=== PATIENT | female | born 1960 | race Caucasian/White ===

== ENCOUNTER 2018-02-01 09:04 | Day surgery (SDC) | payer BC ==
[~2018-02-01] VITALS: Ht 165.1 cm; Wt 100.7 kg
--- NOTE | ~2018-02-01 | OP ---
PATIENT NAME: JORGE TEJEDA MEDICAL RECORD: [id number] :60 LOCATION:[facility] ADMISSION DATE: SURGEON: JOB GUZMAN MD DATE OF OPERATION: 02/01/2018 PREOPERATIVE DIAGNOSES: 1. Vaginal mass. 2. Abnormal pelvic ultrasound. POSTOPERATIVE DIAGNOSES: 1. Vaginal mass. 2. Abnormal pelvic ultrasound. 3. Uterine synechiae. PROCEDURES PERFORMED: 1. Removal of vaginal mass. 2. Hysteroscopy. 3. Dilation and curettage. SURGEON: Job Guzman MD PATIENT SERVICES ASSISTANT: Anatoly Jerome ANESTHETIC: General. FINDINGS: Uterine vault is within normal limits with exception of a 2-cm verrucal lesion arising from the posterior vaginal wall, right at the midline. At the time of hysteroscopy, atrophy was noted inside of the uterine lining and banding/synechiae at the right fundus. SPECIMENS REMOVED: 1. Vaginal mass. 2. Endometrial curetting. SPECIMENS DISPOSITION: #1 and #2 to pathology. ESTIMATED BLOOD LOSS: Minimal. FLUIDS: One liter of lactated Ringer's. URINE OUTPUT: Quantity sufficient void prior to this procedure. COMPLICATION: None. DRAIN: None. INDICATION: The patient is a 58-year-old female with history of a vaginal mass and abnormal finding on pelvic ultrasound of the uterine cavity. The patient was consented for removal of the mass as well as D&C and hysteroscopy. DESCRIPTION OF PROCEDURE: After informed consent was assured, the patient was taken to the operating room, where anesthetic was obtained without difficulty. The patient was now placed in Kem stirrups and prepped and draped. A [place] retractor was inserted into the vaginal vault and weighted speculum was placed with visualization of the verrucal mass arising from the posterior vaginal OPERATIVE REPORT [id number] JORGE TEJEDA [place]. This was grasped with an Allis clamp, elevated; and using a #15 blade, elliptical incision was made at the base of this mass. The mass was now removed and passed for specimen. The defect created by removal was closed with 2-0 Vicryl in a running fashion on a CT-2 needle. After this had been performed, inspection revealed a small area of bleeding and this area was cauterized. The cervix was now dilated to accommodate the hysteroscope. This was passed gently to the fundus with visualization of both cornual regions. The right cornual region was noted to have banding. No masses were identified. Curettage returned scant tissue. Single-tooth tenaculum that was used to study the cervix during this portion of the procedure was removed and adequate hemostasis was noted. The speculum was removed. The patient was taken down from [facility] and went to the recovery area in stable condition. TRANSINT:[id number] Voice Confirmation ID: [id number] DOCUMENT ID: [id number] JOB GUZMAN MD at 1431 CC: [id number] DICTATION DATE: 02/01/18 1320 [employer] MAKER: 02/01/[address] [facility] [place] 02/01/18 [facility] [address] [place] [address]
[~2018-02-01 09:04] MED LIST: CELEXA40 MG PO; LEVOXYL50 MCG PO; LIPITOR20 MG PO; ZESTORETIC 20/21 TAB PO
[2018-02-01 09:34] LABS: BASOPHILS 0.6 % (0-2); EOSINOPHILS 3.5 % (0-7); HEMATOCRIT 40.8 % (36.0-48.0); HEMOGLOBIN 14.4 g/dL (12-16); IMMATURE GRANULOCYTES 0.1 % (0-5); LYMPHOCYTES 35.1 % (15-50); MCH 32.3 pg (26.0-34.0); MCHC 35.3 g/dL (31.0-37.0); MCV 91.5 fL (80.0-100.0); MEAN PLATELET VOLUME 9.6 fL (7.4-10.4); MONOCYTES 9.6 % (2-11); NEUTROPHILS 51.1 % (40-80); PLATELET COUNT 210 10x3/uL (130-400); RBC 4.46 10x6/uL (4.00-5.40); RDW 12.4 % (11.5-14.5); WBC 7.7 10x3/uL (4.8-10.8)
[2018-02-01 11:14] VITALS: BP 122/73; Ht 165.1 cm; Wt 100.7 kg
== END 2018-02-01 14:55 | disposition home or self-care (01) ==
LOC: D.OPS 09:04 → D.PAN 10:00 → D.OPS 10:00
PROVIDERS: Obstetrics & Gynecology
DX: N84.2 Polyp of vagina (principal); N85.6 Intrauterine synechiae; Z01.812 Encounter for preprocedural laboratory examination